=== PATIENT | female | born 2000 | race Two or more races ===

== ENCOUNTER 2025-02-05 09:01 | Emergency (ER) | payer MEDICAID, SELFPAY ==
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
[2025-02-05 09:36] VITALS: BP 109/73; PULSE 64; RESP 18; TEMP 37.1; O2SAT 97
== END 2025-02-05 12:49 | disposition home or self-care (01) ==
PROVIDERS: Emergency Provider Family Medicine; PCP Family Medicine
DX: S13.4XXA Sprain of ligaments of cervical spine, initial encounter (principal); S09.90XA Unspecified injury of head, initial encounter; V89.2XXA Person injured in unspecified motor-vehicle accident, traffic, initial encounter
CPT/HCPCS: 70450; 72125; 99284